=== PATIENT | female | born 1990 | race American Indian/Alaskan Native ===

== ENCOUNTER 2018-04-27 10:17 | Inpatient (IN) | payer MEDICAID ==
[2018-04-27] MEDS: LACTATED RINGERS 1,000 ML IV SCH ×2 (11:20→12:03)
--- NOTE | 2018-04-27 11:20 | Anesthesia Consultation ---
Anesthesia Consult and Med Hx Date of service: 04/27/18 - Airway Anesthetic Teeth Evaluation: Good ROM Head & Neck: Adequate Mental/Hyoid Distance: Adequate Mallampati Class: Class III Intubation Access Assessment: Probably Good - Pulmonary Exam CTA: Yes - Cardiac Exam Cardiac Exam: RRR - Pre-Operative Health Status ASA Pre-Surgery Classification: ASA3 Proposed Anesthetic Plan: Spinal - Pulmonary Hx Asthma: No - Cardiovascular System Hx Hypertension: No - Central Nervous System Hx Seizures: No Hx Psychiatric Problems: No - Endocrine Hx Renal Disease: No Hx Hypothyroidism: No Hx Hyperthyroidism: No - Hematic Hx Anemia: No Hx Sickle Cell Disease: No - Other Systems Hx Alcohol Use: No
[2018-04-27] MEDS ORDERED: BICITRA ONE (11:40)
[2018-04-27] MEDS ORDERED: PEPCID IV ONE ×2 (11:41→12:00)
[2018-04-27 11:52] LABS: Basophils # (Auto) 0.1 K/mm3 (0.0-0.1); Basophils % (Auto) 0.7 % (0.0-1.8); Eosinophils # (Auto) 0.1 K/mm3 (0.0-0.4); Eosinophils % (Auto) 0.7 % (0.0-4.3); Hematocrit 35.5 % (30.3-42.9); Hemoglobin 12.1 gm/dl (10.1-14.3); Lymphocytes # (Auto) 1.8 K/mm3 (1.2-5.4); Lymphocytes % (Auto) 22.5 % (13.4-35.0); Mean Corpuscular HGB Conc 34 % (30-34); Mean Corpuscular Volume 91 fl (79-97); Monocytes # (Auto) 0.6 K/mm3 (0.0-0.8); Monocytes % (Auto) 7.8 % (0.0-7.3); Platelet Count 300 K/mm3 (140-440); Red Blood Count 3.92 M/mm3 (3.65-5.03); Red Cell Distribution Width 14.5 % (13.2-15.2)
[2018-04-27] MEDS ORDERED: ANCEF/STERILE WATER 2 GM/20 ML 2 GM/20 ML SYRINGE IV NR (12:00)
[2018-04-27] MEDS ORDERED: REGLAN IV ONE (12:00)
[2018-04-27] MEDS ORDERED: PITOCin/NS 20 UNIT/1000ML DRIP 20 UNITS/1,000 ML BAG IV SCH ×2 (12:00→18:02)
[2018-04-27] MEDS ORDERED: BICITRA PO ONE (12:00)
[2018-04-27] MEDS ORDERED: NEO SYNEPHRINE ONE (12:14)
[2018-04-27] MEDS ORDERED: ASTRAMORPH PF 10MG/10ML ONE (12:22)
--- NOTE | 2018-04-27 12:34 | History and Physical Report ---
History of Present Illness Date of examination: 04/27/18 Date of admission: 04/27/18 10:17 History of present illness: The patient presented late gestation of at the [facility] care in [place]. Pt had 2 visits with OBGYN in [place]; Patient status post some section 3 is being admitted for repeat section Menstrual History Regularity: irregular Menses every: 30-60 days Duration: 3-4 LMP: 07/24/2017 LMP reliability: definite LMP character: normal test type: urine test BC at conception: none Planned ? no EDC Calculations LMP: 04/30/2018 EDC Confirmation: 04/30/2018 Past History : 4 Term Births: 3 Premature Births: 0 Living Children: 2 Para: 3 Mult. Births: 0 Prev : 3 Prev. attempt? 0 Aborta: 0 Elect. Ab: 0 Spont. Ab: 0 Ectopics: 0 # 1 Delivery date: 03/18/2005 Weeks Gestation: 39 labor: no Delivery type: Anesthesia type: epidural Delivery [place] [facility] [place] Sex: Female weight: 5-13 Comments: CPD # 2 Delivery date: 01/08/2009 Weeks Gestation: 39 Delivery type: Anesthesia type: Spinal Delivery location: [facility] Sex: male weight: 6.13 Name: Douglas # 3 Delivery date: 2011 Weeks Gestation: 38 Delivery type: Sex: Female weight: 6#12 Past Medical History Social Hx: single, no etoh, no tobacco use THC use Smoker - Stopped 08/2017 Infection History Hx of STD: Trich, CT HIV Risk Eval: low risk Hepatitis B Risk Eval: low risk Personal hx. of genital herpes: no Partner hx. of genital herpes: no Rash, Viral, or Febrile illness since last LMP? no Varicella/Chicken Pox Status: Previous Disease Genetic History Congenital Heart Defect: Mom: no Dad: no Bi Disease: Mom: no Dad: no Thalassemia Mom: no Dad: no Neural Tube Defect Mom: no Dad: no Down's Syndrome Mom: no Dad: yes Comments: FOC child with another woman Yevgeniy-Sachs Mom: no Dad: no Sickle Cell Disease/Trait Mom: no Dad: no Hemophilia Mom: no Dad: no Muscular Dystrophy Mom: no Dad: no Cystic Fibrosis Mom: no Dad: no [place] Chorea Mom: no Dad: no Mental Retardation Mom: no Dad: no Fragile X Mom: no Dad: no Other Genetic/Chromosomal Disorder Mom: no Dad: no Child w/other defect Mom: no Dad: no Enviromental Exposures Xray Exposure: no Medication, drug, or alcohol use since LMP: no Chemical/Other Exposure: no Exposure to Cat Liter: no Hx of Parvovirus (Fifth Disease): no Occupational Exposure to Children: none Current Allergies (reviewed today): CODEINE (Critical) Past History Past Medical History: other (See HPI) Past Surgical History: section, other (See HPI) CUSHION FORMER History: other (See HPI) Family/Genetic History: other (See HPI) Social history: other (See HPI) - Obstetrical History Expected Date of Delivery: 04/30/18 Actual Gestation: 39 Week(s) 4 Day(s) : 4 Para: 3 Hx # Term Pregnancies: 3 Number of Pregnancies: 0 Spontaneous Abortions: 0 Induced : 0 Number of Living Children: 3 Medications and Allergies Allergies Allergy/AdvReac Type Severity Reaction Status Date / Time codeine AdvReac Anaphylaxis Verified 04/27/18 11:35 Active Meds: Active Medications Cefazolin Sodium (Ancef/Sterile Water 2 Gm/20 Ml) 2 gm in 20 mls @ 80 mls/hr IV PREOP NR; Protocol Stop: 04/27/18 15:00 Lactated Ringer's (Lactated Ringers) 1,000 mls @ 2,250 mls/hr IV PREOP EILEEN Stop: 04/28/18 12:27 Last Admin: 04/27/18 12:03 Dose: 2,250 mls/hr Documented by: Oxytocin/Sodium Chloride (Pitocin/Ns 20 Unit/1000ml Drip) 20 units in 1,000 mls @ 0 mls/hr IV TITR EILEEN - Vital Signs Vital signs: Vital Signs Pulse BP 71 126/65 04/27/18 11:16 04/27/18 11:16 Temp Pulse Resp BP Pulse Ox 97.8 F 71 16 126/65 04/27/18 11:26 04/27/18 11:26 04/27/18 11:26 04/27/18 11:26 - Physical Exam Breasts: Positive: deferred Cardiovascular: Regular rate Lungs: Positive: Normal air movement Abdomen: Positive: normal appearance, soft Results Result Diagrams: 04/27/18 10:45 Abnormal lab results 04/27/18 Range/Units 10:45 [place] % (Auto) 7.8 H (0.0-7.3) % All other labs normal. Assessment and Plan - Patient Problems (1) 39 weeks gestation of Current Visit: Yes Status: Acute (2) Previous delivery affecting Current Visit: Yes Status: Acute Plan to address problem: Patient admitted for repeat section. Patient informed the risks of the surgery include bleeding possibly bleeding heavy enough to require blood transfusion, infection possible damage to bowel bladder ureter. Patient understands that due to her previous surgery she is an increased risks of adjacent organ damage. Patient's questions answered. Patient understands and desires to proceed. (3) Insufficient care in third trimester Current Visit: Yes Status: Acute
[2018-04-27] MEDS ORDERED: WATER FOR IRRIG STERILE IR ONE (12:50)
[2018-04-27] MEDS ORDERED: NACL 0.9% IR ONE (12:50)
[2018-04-27] MEDS ORDERED: ZOFRAN ONE (13:05)
--- NOTE | 2018-04-27 13:46 | Operative Report ---
Operative Report Operative Report: Date of procedure: 04/27/2018 Pre-operative diagnosis: Intrauterine at 39 weeks with insufficient pr enatal care and previous section 3 Post-operative diagnosis: Same Procedure name(s): Repeat low transverse section Surgeon: Donovan Zazueta MD Coach: Anesthesia: Spinal EBL: 600 mL Complications: None Findings: Uterus with filmy adhesions to the anterior abdominal wall thin lower uterine segment normal tubes and ovaries bilaterally. Female weight 7 lb s. 4 oz. Apgars 8 at 1 minute and 9 at 5 minutes Specimen(s): None Procedure: The patient was brought to the operating room. A spinal was placed without any complications. She was then placed in left lateral tilt. Prepped and draped in the usual sterile manner. After testing for adequate anesthesia level, a Pfannenstiel incision was made through her previous scar. This incision was taken down to the fascia. The fascia was then nicked in the midline. This incision was extended out laterally with Scott scissors. The fascia was then sharply and bluntly from the underlying rectus muscles. The rectus muscles were bluntly and sharply . The peritoneum was then entered with the fishing line winding machine operator's fingers. This incision was spread vertically with care not to damage the bladder below. The bladder flap was then formed sharply and bluntly with Metzenbaum scissors. The Bhupendra self-retaining tractor was then placed without any difficulty. A transverse incision was made in lower uterine segment. This incision was extended laterally with the operators fingers. The amniotic sac was then entered bluntly with the fishing line winding machine operator's fingers. The was delivered from the vertex position. Bulb suction on the mother's abdomen. Cord was double clamped and cut. The infant was then passed to the nursery personnel who were in attendance. The above scores were given by the nursery personnel. The placenta was then bluntly removed. The uterus was then externalized and wiped clean the remaining products. The uterine incision was closed in layers. The first incision was closed in a locking manner using 0 Vicryl. This was followed by imbricating stitch also with 0 Vicryl. This closure was hemostatic. The bladder flap was copiously irrigated and found to be hemostatic. The pelvis was copiously irrigated and found to be hemostatic. The uterus was then placed back to the patient's abdomen. The retractors were removed. The rectus muscles were inspected and found to be hemostatic. The fascia was then closed in a running manner using 0 Vicryl. This incision was hemostatic irrigation Bovie. The skin was reapproximated with 4-0 Vicryl subcuticularly. The patient tolerated procedure well. Her urine was clear. The was admitted to the well baby nursery. The patient was accompanied to recovery room in good condition. Instrument count correct 3.
[2018-04-27] MEDS ORDERED: ZOFRAN IV PRN ×2 (14:37→18:02)
[2018-04-27] MEDS ORDERED: PHENERGAN PR PRN (14:37)
[2018-04-27] MEDS ORDERED: NARCAN 0.4 MG/1 ML IV PRN ×2 (14:37→18:02)
[2018-04-27] MEDS ORDERED: PHENERGAN PO PRN (14:37)
[2018-04-27] MEDS ORDERED: TORADOL IV PRN (14:38)
[2018-04-27] MEDS ORDERED: SODIUM CHLORIDE FLUSH SYRINGE 10 ML IV NR ×2 (15:00→18:02)
[2018-04-27] MEDS: DILAUDID IV PRN (15:19)
[2018-04-27] MEDS ORDERED: D5LR 1,000 ML IV SCH (18:02)
[2018-04-27] MEDS ORDERED: MILK OF MAGNESIA PO PRN (18:02)
[2018-04-27] MEDS ORDERED: TUCKS PAD TP PRN (18:02)
[2018-04-27] MEDS ORDERED: LANSINOH TP PRN (18:02)
[2018-04-27] MEDS ORDERED: MYLICON PO PRN (18:02)
[2018-04-27] MEDS: TORADOL IV SCH (18:29)
[2018-04-27] MEDS: ANCEF/NS 1 GM/50 ML 1 GM/50 ML BAG IV SCH (20:14)
[2018-04-28] MEDS: BENADRYL IV PRN (00:34)
[2018-04-28] MEDS: TORADOL IV SCH ×3 (00:34→20:29)
[2018-04-28 01:33] LABS: Hematocrit 32.2 % (30.3-42.9); Hemoglobin 10.9 gm/dl (10.1-14.3)
[2018-04-28] MEDS: ANCEF/NS 1 GM/50 ML 1 GM/50 ML BAG IV SCH (04:08)
[2018-04-28] MEDS: FEOSOL PO SCH (09:29)
[2018-04-28] MEDS: PRENATAL VITAMIN PO SCH (09:30)
[2018-04-28] MEDS ORDERED: NORCO 5/325 ONE (10:34)
[2018-04-28] MEDS: BENADRYL PO PRN ×2 (10:35→17:00)
[2018-04-28] MEDS: NORCO 5/325 PO PRN ×2 (10:35→17:00)
[2018-04-28] MEDS ORDERED: BENADRYL PO PRN (11:00)
--- NOTE | 2018-04-28 18:13 | Progress Note ---
Assessment and Plan 28 y.o. S/p rpt c/s POD 1. Patient reports feeling well, no complaints. Reports incisional pain and cramping was worse earlier in the morning, but controlled now with [place]. Reports itching, Benadryl order given to RN. Patient reports bleeding is small, no clots. Dressing remains in place at this time- clean, dry, and intact-to be removed with shower today. VSSAF. Patient reports baby girl is doing well. Breast feeding is going well, supplementing with formula as needed. Desires OCP for contraception. Subjective - Subjective Date of service: 04/28/18 (AM rounds) Principal diagnosis: S/P rpt c/s POD 1 Patient reports: appetite normal, voiding normally, pain well controlled, ambulating normally [place]: doing well Objective - Vital Signs Latest vital signs: Vital Signs Temp Pulse Resp BP Pulse Ox 04/28/18 16:29 98.2 F 81 18 99/44 97 04/28/18 11:33 98.5 F 60 18 102/56 04/28/18 08:34 98.9 F 60 18 98/50 04/28/18 00:00 98.7 F 66 16 114/78 04/27/18 20:00 98.6 F 69 18 117/78 Intake and Output 04/28/18 04/28/18 04/28/18 07:59 15:59 23:59 Intake Total 1680 Output Total 700 1000 Balance -700 680 Intake: Oral 840 Intake, Free Water 840 Output: Urine 700 1000 Indwelling Catheter 700 Void 1000 Other: Total, Intake Amount 240 Total, Output Amount 700 750 - Exam Breasts: Present: normal Cardiovascular: Present: Regular rate Lungs: Present: Clear to auscultation Abdomen: Present: normal appearance, soft, normal bowel sounds Vulva: both: normal Uterus: Present: normal, firm Extremities: Present: normal Incision: Present: dry (dressing remains in place at this time. clean and dry, no bleeding noted)
[2018-04-28] MEDS: ULTRAM PO PRN (20:55)
[2018-04-28] MEDS: IBUPROFEN PO PRN (23:55)
[2018-04-29] MEDS: ULTRAM PO PRN ×2 (05:19→16:11)
[2018-04-29] MEDS: IBUPROFEN PO PRN ×3 (05:23→18:32)
[2018-04-29] MEDS: BENADRYL IV PRN ×2 (09:50→21:30)
[2018-04-29] MEDS: DILAUDID IV PRN ×2 (09:51→21:40)
[2018-04-29] MEDS: FEOSOL PO SCH (09:53)
[2018-04-29] MEDS: PRENATAL VITAMIN PO SCH (09:53)
--- NOTE | 2018-04-29 12:54 | Progress Note ---
Assessment and Plan - Patient Problems (1) 39 weeks gestation of Current Visit: Yes Status: Resolved (2) Previous delivery affecting Current Visit: Yes Status: Resolved (3) Insufficient care in third trimester Current Visit: Yes Status: Acute (4) delivery delivered Current Visit: Yes Status: Acute Plan to address problem: Patient's going well desires on discharge on tomorrow Subjective - Subjective Principal diagnosis: S/P rpt c/s POD 1 Interval history: Postoperative day #2. Patient without fever. We will continue routine postoperative care. Patient's postoperative hematocrit 32%. Patient is breast- feeding and desires oral contraceptive pills for control. Patient reports: appetite normal, voiding normally, pain well controlled, flatus : nursing well Objective - Vital Signs Latest vital signs: Vital Signs Temp Pulse Resp BP BP Pulse Ox 04/29/18 07:14 98.2 F 73 20 101/51 96 04/29/18 05:23 16 04/29/18 05:19 16 04/29/18 00:20 98.7 F 89 18 110/59 04/28/18 20:55 18 04/28/18 16:29 98.2 F 81 18 99/44 97 Intake and Output 04/28/18 04/29/18 04/29/18 22:59 06:59 14:59 Intake Total 480 720 320 Output Total 350 Balance 130 720 320 Intake: Oral 320 Intake, Free Water 480 720 Output: Urine 350 Void 350 Other: Total, Intake Amount 120 Total, Output Amount 350 # Voids Void 1 1 - Exam Breasts: Present: deferred Cardiovascular: Present: Regular rate Lungs: Present: Normal air movement Abdomen: Present: normal appearance, soft, tenderness (appropriately), normal bowel sounds Uterus: Present: firm, fundal height below umbilicus Extremities: Present: edema Incision: Present: normal, dry, intact
--- NOTE | 2018-04-29 15:12 | Event Note ---
Date: 04/29/18 Nurse call states patient c/o leg pain. Patient states she had this early this am and it had resolved prior to me seeing her during my rounds. Patient states her edema has significantly decrease since complaint early this am. On her exam she has bilateral 1-2+ edema negative Bethany sign. Exam c/w normal post C/S exam will continue to monitor
[2018-04-30] MEDS: ULTRAM PO PRN ×3 (00:53→17:05)
[2018-04-30] MEDS: IBUPROFEN PO PRN ×2 (00:57→10:30)
--- NOTE | 2018-04-30 09:38 | Discharge Summary ---
Providers - Providers Date of Admission: 04/27/18 10:17 Date of discharge: 04/30/18 Attending physician: IRASEMA LARSON 04/27/18 18:02 Consult to Corporate Receptionist [CONS] Routine Reason For Exam: Primary care physician: IRASEMA LARSON Hospitalization Reason for admission: section Delivery: Procedure: section Procedure details: see op note Incision: normal, dry, intact complications: none Discharge diagnosis: IUP at term delivered Hospital course: Min[place] for scheduled repeat section via patient had routine and postoperative care that was not complicated. Patient will be discharged home on today. Condition at discharge: Good Disposition: - TO HOME OR SELFCARE Plan - Discharge Medications Prescriptions: Ferrous Sulfate [Feosol 325 MG tab] 325 mg PO BID #60 tablet Ibuprofen [Motrin 800 MG tab] 800 mg PO Q6H PRN #30 tablet PRN Reason: Pain Ketorolac [Toradol] 10 mg PO Q6H PRN #20 tablet PRN Reason: Pain - Provider Discharge Summary Activity: routine, no sex for 6 weeks, no heavy lifting 4 weeks, no strenuous exercise Diet: routine Instructions: routine Additional instructions: [] Smoking cessation referral if applicable(refer to patient education folder for contact #) [] Refer to [facility] Booklet Call your doctor immediately for: * Fever > 100.5 * Heavy vaginal bleeding ( >1 pad per hour) * Severe persistent headache * Shortness of breath * Reddened, hot, painful area to leg or breast * Drainage or odor from incision. * Keep incision clean and dry at all times and follow doctor's instructions regarding bathing/showering - Follow up plan Follow up: IRASEMA LARSON MD [Primary Care Provider] - 7 Days Forms: [facility] Discharge Summary
[2018-04-30] MEDS: FEOSOL PO SCH (10:25)
[2018-04-30] MEDS: PRENATAL VITAMIN PO SCH (10:25)
[2018-04-30 16:51] VITALS: BP 102/64
== END 2018-04-30 18:05 | disposition home or self-care (01) | DRG 766 ==
LOC: APU 10:17 → OB 15:54
PROVIDERS: ADMIT Obstetrics & Gynecology; ATTEND Obstetrics & Gynecology
PROC: 10D00Z1 Extraction of Products of Conception, Low, Open Approach (ICD-10-PCS; principal; 2018-04-27)
DX: O34.211 Maternal care for low transverse scar from previous cesarean delivery (principal); O99.62 Diseases of the digestive system complicating childbirth; K66.0 Peritoneal adhesions (postprocedural) (postinfection); Z3A.39 39 weeks gestation of pregnancy; Z37.0 Single live birth
CPT/HCPCS: 36415; 85014; 85018; 85025; 86850; 86900; 86901; G0378; A6250; C1765; J0690; J1170; J1200; J1885; J2274; J2370; J2405; J2590; J2765; J7120; J7121